=== PATIENT | male | born 1955 | race Caucasian/White ===

== ENCOUNTER 2025-01-07 09:43 | Day surgery (SDC) | payer OTHER, MEDICARE ==
[2025-01-07 11:14] LABS: Absolute Basophils 0.1 K/uL (0-0.5); Absolute Eosinophils 0.1 K/uL (0-0.5); Absolute Monocytes 0.5 K/uL (0.1-1.3); Absolute Neutrophil 3.9 K/uL (1.8-8.0); Eosinophils % 2.1 % (0-4.4); Hematocrit 35.5 % (39.6-49.0); Hemoglobin 12.3 g/dL (13.6-17.9); Lymphocytes % 17.8 % (15.3-44.8); MCH 30.7 pg (27.0-35.0); MCHC 34.5 g/dL (32.0-36.0); MCV 88.8 fL (80-100); MPV 9.1 fL (7.6-11.3); Monocytes % 8.5 % (3.3-12.3); Neutrophils % 70.6 % (41.7-73.7); Platelets 207 thou/uL (152-406); Red Cell Distribution Width 13.8 % (12.1-15.2)
[2025-01-07] MEDS: NA CHLORIDE 0.9% 1,000 ML ONE (11:15)
[2025-01-07] MEDS ORDERED: PIPER TAZO 3.375 GM in NA CHLORIDE 0.9% 100 ML IV ONE (11:15)
[2025-01-07 11:27] LABS: Anion Gap 6.9 mEq/L (5.0-15.0); Potassium 3.9 mEq/L (3.5-5.1)
[2025-01-07] MEDS ORDERED: LIDOCAINE 2% MPF 5 ML VIAL ONE (12:36)
[2025-01-07] MEDS ORDERED: KETOROLAC 30 MG/ML INJ ONE (12:36)
[2025-01-07] MEDS ORDERED: dexAMETHasone 10 MG/ML VIAL ONE (12:36)
[2025-01-07] MEDS ORDERED: ONDANSETRON 4 MG/2 ML VIAL ONE (12:36)
[2025-01-07] MEDS ORDERED: propofoL 200 MG/20 ML VIAL IV ONE (12:36)
[2025-01-07] MEDS ORDERED: MIDAZOLAM HCL 2 MG/2 ML INJ ONE (12:37)
[2025-01-07] MEDS ORDERED: FENTANYL CITR 100 MCG/2 ML ONE (12:37)
[2025-01-07] MEDS ORDERED: ROCURONIUM 50 MG/5 ML VIAL IV ONE (12:51)
[2025-01-07] MEDS: METHYLENE BLUE 1% 10 ML VIAL ONE (13:25)
[2025-01-07] MEDS: LIDOCAINE HCL/EPINEPHRINE 20 ML MDV ONE (13:25)
[2025-01-07] MEDS ORDERED: MEPERIDINE HCL 25 MG/ML SYR ONE (13:55)
--- NOTE | 2025-01-07 13:55 | P.OP ---
Preoperative diagnosis: RIGHT Buttock Chronic Wound Postoperative diagnosis: RIGHT Buttock Chronic Wound Primary procedure: Debridement of RIGHT Buttock Chronic Wound Anesthesia: GETA Estimated blood loss: <10cc Specimen: Cultures, Debridement Tissue Findings: ~ 2cm x 2cm x 8 cm RIGHT Buttock Wound near Ischium Complications: None Transferred to: Recovery Room Condition: Good
[2025-01-07 14:24] VITALS: TEMP 97.1
[2025-01-07 14:46] VITALS: O2SAT 95
[2025-01-07 15:01] VITALS: BP 114/70
--- NOTE | 2025-01-07 16:29 | OP ---
Date of Procedure: 01/07/2025 Surgeon: Rony Mayers MD, Preoperative Diagnosis: Right buttock chronic wound. Postoperative Diagnosis: Right buttock chronic wound. Procedure Performed: Debridement of the right buttock chronic wound. Anesthesia: General endotracheal. Estimated Blood Loss: Less than 10 cc. Specimens: Culture sent both for aerobic and anaerobic speciation and debridement tissue. Findings: Approximately 2 cm x 2 cm x 8 cm depth right buttock wound near the ischium with significa nt scar tissue and small multiloculated abscess appreciated. Complications: None. Disposition: The patient transferred to recovery room in good condition. Procedure In Detail: After informed consent was obtained, the patient was brought to the operating r oom, prepped and draped in the usual sterile fashion after adequate anesthesia was achieved. I injec rony methylene blue into this punctate opening on the right buttock area. I then placed a probe into this cavity and it was stretched down to approximately 8 cm in length. I dissected down circumferent ially around after making an elliptical/circular incision around the entry point where the wound was noted. It was approximately 2 cm x 2 cm. I then dissected down using electrocautery, following the probe down, I encountered small multiloculated abscesses which were very small along the way. These were cultured for both aerobic and anaerobic speciation at this point and dissection down to included the tip of the probe. This was sent off for pathologic examination. All blue areas were removed, a t this point. The area was copiously irrigated and hemostasis was achieved with electrocautery. The wound was then packed with Kerlix soaked with gauze and a sterile dressing placed over top. The pat ient tolerated the procedure without incident or complication and transferred to PACU in good conditi on. All counts were correct at the end of the case. TK/MODL Voice ID: [id number] Report ID: [id number]
--- NOTE | 2025-01-08 08:37 | EKG ---
Test Date: 2025-01-07 Test Time: 10:09:07 Committee Member: MOHAMUD MEASUREMENT RESULTS: Intervals: Rate: 68 ND: 148 QRSD: 82 QT: 420 QTc: 446 [place]: P: 44 ND: 148 QRS: 13 T: 23 INTERPRETIVE STATEMENTS: Normal sinus rhythm with sinus arrhythmia Low voltage QRS Cannot rule out Anterior infarct, age undetermined Abnormal ECG Compared to ECG 04/18/2024 11:09:19 Low QRS voltage now present Myocardial infarct finding now present Electronically Signed On 01-08-25 08:35:43 CDT by Timothy Frankel
== END 2025-01-07 15:27 | disposition home or self-care (01) ==
LOC: OR 09:43
PROVIDERS: ATTEND Surgery
PROC: 0JD93ZZ Extraction of Buttock Subcutaneous Tissue and Fascia, Percutaneous Approach (ICD-10-PCS; principal; 2025-01-07 12:45)
DX: S31.819A Unspecified open wound of right buttock, initial encounter (principal)
CPT/HCPCS: 11042; 93005; 87070; 85025; 80048; 36415; 87205; 82947; 88304; 87075; J2704; J2543; J2003; J2250; J3010; J1100; J2175; J2405; J7030

== ENCOUNTER 2025-01-09 16:04 | Emergency (ER) | payer OTHER, MEDICARE ==
[2025-01-09] MEDS ORDERED: LIDOCAINE HCL JELLY 2% 6 ML SYRINGE TOP ONE (18:27)
--- NOTE | 2025-01-09 19:11 | ER ---
Nurse's Notes [facility] Name: Dimitri Collado Age: 69 yrs Sex: Male : 1955 Arrival Date: 01/09/2025 Time: 16:04 Bed 20 Private MD: Diagnosis: Encounter for change or removal of surgical wound dressing Presentation: 01/09 16:43 Chief complaint: Patient states: he had an abscess sx on 01/07 at this facility. patient ap3 states home health came today to redress the wound, and now the wound will not stop bleeding. patient reports calling surgeon who informed patient to come be evaluated. Coronavirus screen: At this time, the client does not indicate any symptoms associated with coronavirus-19. Ebola Screen: No symptoms or risks identified at this time. Initial Sepsis Screen: Does the patient meet any 2 criteria? HR > 90 bpm. Does the patient have a suspected source of infection? No. Patient's initial sepsis screen is negative. Risk Assessment: Do you want to hurt yourself or someone else? Patient reports no desire to harm self or others. Onset of symptoms was January 09, 2025. 16:43 Method Of Arrival: Ambulatory ap3 16:43 Acuity: MARVIN 3 ap3 Triage Assessment: 16:45 General: Appears in no apparent distress. Behavior is calm, cooperative, appropriate ap3 for age. Pain: Complains of pain in buttocks. Neuro: Level of Consciousness is awake, alert, obeys commands, Oriented to person, place, time, situation, Appropriate for age. Cardiovascular: Patient's skin is warm and dry. Respiratory: Airway is patent Respiratory effort is even, unlabored, Respiratory pattern is regular, symmetrical. Historical: - Allergies: 16:44 No Known Allergies; ap3 - Immunization history:: Client reports receiving the 2nd dose of the Covid vaccine, Flu vaccine is up to date. - Infectious Disease History:: Denies. - Social history:: Smoking status: Patient denies any tobacco usage or history of. Screenin:45 Abuse screen: Denies threats or abuse. Nutritional screening: No deficits noted. ap3 Tuberculosis screening: No symptoms or risk factors identified. 16:45 [facility] ED Fall Risk Assessment (Adult) History of falling in the last 3 months, bp including since admission No falls in past 3 months (0 pts) Confusion or Disorientation No (0 pts) Intoxicated or Sedated No (0 pts) Impaired Gait No (0 pts) Mobility Assist Device Used No (0 pt) Altered Elimination No (0 pt) Score/Fall Risk Level 0 - 2 = Low Risk Oriented to surroundings. Assessment: 16:45 General: Appears in no apparent distress. Behavior is calm, cooperative, appropriate bp for age. Pain: Complains of pain in buttocks. Vital Signs: 16:43 BP 156 / 72; Pulse 93; Resp 17; Temp 98.5; Pulse Ox 98% on R/A; Weight 99.79 kg; Height ap3 5 ft. 6 in. ; 16:43 Body Mass Index 35.51 (99.79 kg, 167.64 cm) ap3 ED Course: 16:09 Patient arrived in ED. al6 16:17 Terry Gavin PA is PHCP. cp 16:17 Kiko Tamayo MD is Attending Physician. cp 16:38 Constantin Campbell, FRANKI is Primary Nurse. bp 16:44 Triage completed. ap3 16:45 Patient has correct armband on for positive identification. Placed in gown. Bed in low ap3 position. Call light in reach. 16:45 Arm band placed on right wrist. ap3 16:45 Provided Education on: NA. bp 19:09 Mitchell Mayers MD is Referral Physician. cp 19:16 No provider procedures requiring assistance completed. Patient did not have IV access bp during this emergency room visit. bleeding controlled, No redness/swelling at site. Pressure dressing applied. Administered Medications: No medications were administered Medication: 16:45 VIS not applicable for this client. bp Outcome: 19:11 Discharge ordered by . cp 19:16 Discharged to home bp 19:16 Condition: stable 19:16 Discharge instructions given to patient, Instructed on discharge instructions, follow up and referral plans. Demonstrated understanding of instructions, follow-up care, 19:16 Patient left the ED. bp Signatures: Terry Gavin PA PA cp Peltier, Brian, FRANKI RN bp Naa Ballard RN RN ap3 Marixa Olivier al6
--- NOTE | 2025-01-09 19:11 | EDPHYS ---
Physician Documentation [facility] Name: Dimitri Collado Age: 69 yrs Sex: Male : 1955 Arrival Date: 01/09/2025 Time: 16:04 Bed 20 Private MD: ED Physician Kiko Tamayo HPI: 01/09 16:50 This 69 yrs old Male presents to ER via Ambulatory with complaints of Wound Check. cp 16:50 Patient presents to ED for recheck of: open surgical wound to left buttock. cp 16:50 Patient presents to ED with c/o active bleeding from left surgical buttock wound that cp started earlier today after home health changed dressing. No other complaints expressed. Historical: - Allergies: 16:44 No Known Allergies; ap3 - Immunization history:: Client reports receiving the 2nd dose of the Covid vaccine, Flu vaccine is up to date. - Infectious Disease History:: Denies. - Social history:: Smoking status: Patient denies any tobacco usage or history of. ROS: 16:55 Constitutional: history per hpi cp 16:55 Constitutional: Negative for body aches, chills, fever, 16:55 Respiratory: Negative for cough, shortness of breath, wheezing, 16:55 Skin: Positive for surgical wound to left buttock, 16:55 Neuro: Negative for altered mental status, dizziness, weakness, 16:55 All other systems are negative, Exam: 17:00 Constitutional: The patient appears in no acute distress, alert, awake, cp non-diaphoretic, non-toxic, well developed, well nourished, 17:00 Head/Face: Normocephalic, atraumatic. cp 17:00 Cardiovascular: Rate: normal, 17:00 Respiratory: the patient does not display signs of respiratory distress, Respirations: normal, 17:00 Skin: Wound recheck: Abscess: the packing is in place, minimal active bleeding observed, approximate quarter size open wound noted to left buttock with ecchymosis, swelling noted, Vital Signs: 16:43 BP 156 / 72; Pulse 93; Resp 17; Temp 98.5; Pulse Ox 98% on R/A; Weight 99.79 kg; Height ap3 5 ft. 6 in. ; 16:43 Body Mass Index 35.51 (99.79 kg, 167.64 cm) ap3 MDM: 16:46 Medical Screening Exam initiated cp 17:00 Differential diagnosis: anemia, cellulitis, abscess, uncontrolled bleeding. cp 19:02 Management of patient was discussed with the following: Metal Temperer: DR Mayers, harinders cp patient in ED,. 19:10 Data reviewed: vital signs, nurses notes, and as a result, I will discharge patient. cp Administered Medications: No medications were administered Disposition Summary: 01/09/25 19:11 Discharge Ordered Notes: Location: Home cp Problem: new cp Symptoms: have improved cp Condition: Stable cp Diagnosis - Encounter for change or removal of surgical wound dressing cp Followup: cp - With: Mitchell Mayers MD - When: 2 - 3 days - Reason: Wound Recheck Discharge Instructions: - Discharge Summary Sheet cp - Wound Care, Adult cp Forms: - Medication Reconciliation Form cp - Antibiotic Education cp - Prescription Opioid Use cp - Patient Portal Instructions cp - Leadership Thank You Letter cp Addendum: 01/11/2025 07:00 Co-signature as Attending Physician, Kiko Tamayo MD I reviewed the patient's care r n provided by the Advanced Practice Provider and agree with the diagnosis and treatment plan. Signatures: Kiko Tamayo MD MD rn Terry Gavin PA PA cp Naa Ballard RN RN ap3 Corrections: (The following items were deleted from the chart) 01/10 17:43 01/09 16:35 Constitutional: history per hpi cp cp 01/10 17:43 01/09 16:35 Skin: Positive for surgical wound to left buttock, cp cp 01/10 17:01/09 16:35 Neuro: Negative for altered mental status, dizziness, weakness, cp cp 01/10 17:43 01/09 16:35 Constitutional: Negative for body aches, chills, fever, cp cp 01/10 17:43 01/09 16:35 Respiratory: Negative for cough, shortness of breath, wheezing, cp cp 01/10 17:43 01/09 16:35 All other systems are negative, cp cp
[2025-01-09 19:32] VITALS: BP 156/72; TEMP 98.5; O2SAT 98
== END 2025-01-09 19:16 | disposition home or self-care (01) ==
LOC: ER 16:04
DX: Z48.01 Encounter for change or removal of surgical wound dressing (principal)
CPT/HCPCS: 99283